=== PATIENT | male | born 1980 | race Caucasian/White ===

== ENCOUNTER 2017-01-29 08:27 | Outpatient (CLI) | payer OTHER ==
[2017-01-29 08:57] VITALS: BP 133/91
[2017-01-29] MEDS ORDERED: LISINOPRIL10 MG PO (09:02)
[2017-01-29] MEDS ORDERED: FISH OIL1200 MG (09:03)
[2017-01-29] MEDS ORDERED: ALLOPURINOL300 MG PO (09:03)
[2017-01-29] MEDS ORDERED: VITAMIN D-11000 UNIT (09:04)
--- NOTE | 2017-01-29 10:03 | NUR ---
PT WAS HERE FOR PHLEBOTOMY IV STARTED 500 CC BLOOD REMOVED PT RISA WELL PT DISCHARGED 15 MINUTES AFTER AMBULATORY
== END 2017-01-29 10:04 | disposition home or self-care (01) ==
LOC: SDP SRH 08:27 → OB SRH 08:32 → SDP SRH 10:04
PROC: 059Y3ZZ Drainage of Upper Vein, Percutaneous Approach (ICD-10-PCS; principal; 2017-01-29)
DX: D75.1 Secondary polycythemia (principal)

== ENCOUNTER 2017-02-11 09:55 | Outpatient (CLI) | payer OTHER ==
[~2017-02-11 09:55] MED LIST: ALLOPURINOL300 MG PO; FISH OIL1200 MG; LISINOPRIL10 MG PO; VITAMIN D-11000 UNIT
[2017-02-11 10:10] VITALS: BP 138/94
[2017-02-11 10:45] VITALS: BP 122/85
--- NOTE | 2017-02-11 10:53 | NUR ---
PT HERE FOR A PHLEBOTOMY 500 CC REMOVED PT RISA WELL PT DRANK JUICE AND WATER AFTER PT DISCHARGED
== END 2017-02-11 11:13 | disposition home or self-care (01) ==
LOC: SDP SRH 09:55 → SCU SRH 10:22 → SDP SRH 11:13
PROC: 059Y3ZZ Drainage of Upper Vein, Percutaneous Approach (ICD-10-PCS; principal; 2017-02-11)
DX: D75.1 Secondary polycythemia (principal)
CPT/HCPCS: 29240

== ENCOUNTER 2017-03-04 13:27 | Outpatient (CLI) | payer OTHER ==
[2017-03-04 13:55] VITALS: BP 139/92
--- NOTE | 2017-03-04 13:56 | NUR ---
PATIENT HERE FOR PHLEBOTOMY. VSS. AFEBRILE. STARES HE IS HEALTHY AT THIS TIME. 18 GUAGE IV STARTED WITHOUT DIFFICULTY. KB
--- NOTE | 2017-03-04 14:26 | NUR ---
FIRST IV SITE CLOTTED OFF AFTER 200ML OF WRBCs. IV FLUSHED BUT WOULD NOT DRAW BACK. IV DC'D. CATHETER INTACT. 2ND IV STARTED IN RAC WITHOUT DIFFICULTY. PATIENT TOLERATED PROCEDURE WELL. KB
--- NOTE | 2017-03-04 14:43 | NUR ---
ABLE TO COMPLETE PHLEBOTOMY SLOWLY BUT WITHOUT DIFFICULTY. PATIENT TLERATED PROCEDURE WELL. ASYMPTOMATIC. DISCHARGED HOME. KB
== END 2017-03-04 16:00 | disposition home or self-care (01) ==
LOC: SDP SRH 13:27 → OB SRH 13:28 → SDP SRH 13:30 → OB SRH 13:32 → SDP SRH 16:00
PROC: 059Y3ZZ Drainage of Upper Vein, Percutaneous Approach (ICD-10-PCS; principal; 2017-03-04)
DX: D75.1 Secondary polycythemia (principal)

== ENCOUNTER 2017-03-11 13:13 | Outpatient (CLI) | payer OTHER ==
[2017-03-11 13:42] VITALS: BP 150/94
--- NOTE | 2017-03-11 13:51 | NUR ---
PATIENT HER FOR SECOND PHLEBOTOMY. 18 GUAGE IV STARTED IN LEFT WRIST. GOOD RETURN, BUT DRAINING SO SLOWLY IT BARELY REACHED THE BLOOD BAG. IV STARTED AGAIN IN LEFT FOREARM WITH GOOD RETURN. PATIENT TOLERATED BOTH IV STARTS WELL. 2ND IV RUNNING WITHOUT DIFFICULTY. KB
--- NOTE | 2017-03-11 14:14 | NUR ---
PATIENT TOLERATED PROCEDURE WELL. ASYMPTOMATIC. HR REMAINS ELEVATED. REGULAR RATE AND RHYTHM. IV DCd. CATHETER INTACT. 500CC WRBCs REMOVED WITHOUT DIFFICULTY. KB
== END 2017-03-11 14:20 | disposition home or self-care (01) ==
LOC: SDP SRH 13:13 → OB SRH 13:16 → SDP SRH 13:30
PROC: 059 Upper Veins, Drainage (ICD-10-PCS; principal; 2017-03-11)
DX: D75.1 Secondary polycythemia (principal)

== ENCOUNTER 2017-05-27 13:15 | Outpatient (CLI) | payer OTHER ==
[2017-05-27 13:53] VITALS: BP 131/94
[2017-05-27 14:27] VITALS: BP 139/97
--- NOTE | 2017-05-27 14:28 | NUR ---
PT HERE FOR PHLEBOTOMY 500 CC REMOVED. PT RISA PROCEDURE WELL
== END 2017-05-27 14:45 | disposition home or self-care (01) ==
LOC: SDP SRH 13:15 → OB SRH 13:15 → SDP SRH 13:30
PROC: 059Y3ZZ Drainage of Upper Vein, Percutaneous Approach (ICD-10-PCS; principal; 2017-05-27)
DX: D75.1 Secondary polycythemia (principal)